=== PATIENT | male | born 2000 | race Caucasian/White ===

== ENCOUNTER 2018-09-17 17:04 | Emergency (ER) | payer OTHER ==
[~2018-09-17] VITALS: Ht 185.4 cm; Wt 83.2 kg
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
[2018-09-17] MEDS ORDERED: KETOROLAC 60 MG/2 ML VIAL (J1885) IM ONE (18:15)
[2018-09-17] MEDS ORDERED: IBUP-1114 PO (18:25)
[2018-09-17 18:35] VITALS: BP 138/79
[2018-09-17] MEDS ORDERED: KETOROLAC TROMETHAMINE 10 MG TAB PO ONE (19:15)
== END 2018-09-17 19:10 | disposition home or self-care (01) ==
LOC: M ED 17:04
DX: H92.01 Otalgia, right ear (principal); V48.6XXA Car passenger injured in noncollision transport accident in traffic accident, initial encounter; Y92.9 Unspecified place or not applicable; Y93.9 Activity, unspecified; Y99.9 Unspecified external cause status; Z72.0 Tobacco use

== ENCOUNTER → 2020-07-01 | Outpatient (CLI) | payer OTHER ==
[~2020-07-01] MED LIST: IBUP-1114 PO
== END ==
LOC: M LABSMTC 12:46
PROVIDERS: ATTEND Family Medicine
DX: Z20.822 Contact with and (suspected) exposure to COVID-19 (principal)
CPT/HCPCS: C9803; U0003

== ENCOUNTER 2021-03-08 13:33 | Emergency (ER) | payer OTHER ==
[~2021-03-08] VITALS: Ht 188 cm; Wt 92.7 kg
[2021-03-08 13:33] VITALS: BP 132/71
--- NOTE | 2021-03-08 14:25 | REP ---
INDICATION: pain COMPARISON: None TECHNIQUE: Five views FINDINGS: There is a proximal fibular head fracture. IMPRESSION: Proximal fibular head fracture. <Electronically signed by Gage Prieto > 03/08/21 [id number]
[2021-03-08] MEDS ORDERED: IBUPROFEN 800 MG TAB PO ONE (14:30)
[2021-03-08] MEDS ORDERED: ACETAMINOPHEN 500 MG TAB PO ONE (14:30)
--- NOTE | 2021-03-08 14:58 | REP ---
INDICATION: proximal fibular fracture, r/o maisonneuve racture. COMPARISON: None. TECHNIQUE: Four views FINDINGS: No acute fracture or destructive osseous lesion. The mortise is intact. IMPRESSION: No acute osseous abnormality. <Electronically signed by Gage Prieto > 03/08/21 [id number]
[2021-03-08] MEDS ORDERED: HYDR-3713 PO (16:11)
--- NOTE | 2021-03-08 17:29 | ER ---
ER CONSULTATION DATE: 03/08/2021 TIME: 2:30 p.m. SURGEON: Atul Kate M.D. CONSULTING SERVICE: Orthopedic surgery. 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 Patient was celebrating the holiday, which is Halloween, and sustained a twisting injury about his left knee while going down some stairs in his [employer]. Patient presented to the [facility] emergency department for further evaluation and treatment regarding his left knee pain. PAST MEDICAL HISTORY: Previous left knee medial collateral ligament (MCL) sprain or strain several years prior, which was treated nonoperatively. PAST SURGICAL HISTORY: Patient denies. SOCIAL HISTORY: He is a social drinker, nonsmoker, not a heavy drug user. ALLERGIES: Unknown. MEDICATIONS: Noncontributory REVIEW OF SYSTEMS: A 14 point review of systems was negative except what is described in the history of present illness (HPI) above. PHYSICAL EXAMINATION: GENERAL: Alert and oriented to person, time and place. LEFT KNEE: Tenderness to palpation about the fibular head. There was mild joint effusion. There were no breaks in the skin. Neurovascularly intact. LEFT LOWER EXTREMITY: There is 5/5 motor strength to the exterior hallucis longus (EHL), flexor hallucis longus (FHL), tibialis, anterior gastrocnemius and peroneal musculature. Sensation is intact to light touch to the deep and superficial peroneal, sural, saphenous and tibial nerve distributions. Brisk capillary refill to the digits with palpable dorsalis pedis and posterior pedal pulse. Patient was guarding significantly and would not tolerate a ligamentous exam. IMAGING DATA: Left knee radiographs demonstrates a minimally displaced fracture of the fibular head. There appears to be some widening of the lateral joint space indicative of a lateral collateral/posterolateral corner injury. Minimal knee effusion is appreciated in the lateral view. Left angle x-ray was negative for osseus abnormalities. IMPRESSION: A 20-year-old male with a left fibular head fracture, suspected posterolateral corner injury, ligamentous injury. PLAN: At this point in time, we will aspirate the patient's knee to improve his pain. He is having difficulty with ambulation, likely secondary to the hemarthrosis and he will be put in a knee immobilizer. He will follow up at [facility] for further evaluation and treatment regarding his suspected posterolateral corner injury. He will likely undergo physical therapy for 2-4 weeks prior to any additional advanced imaging including an MRI. Patient will be discharged with a knee immobilizer, pain medications per the emergency room (ER) physician or the physician supply assistant (P.A.).
== END 2021-03-08 17:05 | disposition home or self-care (01) ==
LOC: M ED 13:33
DX: S82.832A Other fracture of upper and lower end of left fibula, initial encounter for closed fracture (principal); S83.92XA Sprain of unspecified site of left knee, initial encounter; X50.0XXA Overexertion from strenuous movement or load, initial encounter; Y92.009 Unspecified place in unspecified non-institutional (private) residence as the place of occurrence of the external cause; Y93.9 Activity, unspecified; Y99.9 Unspecified external cause status; F17.200 Nicotine dependence, unspecified, uncomplicated

== ENCOUNTER 2021-07-20 09:45 | Day surgery (SDC) | payer OTHER ==
[~2021-07-20] VITALS: Ht 188 cm; Wt 88.0 kg
[~2021-07-20 09:45] MED LIST changes: +HYDR-3713 PO; +HYDROmorphone HCL 2MG/ML 1ML VIAL As Ordered ONE; +LIDOCAINE 1% MDV 20ML VIAL SQ PRN; +LIDOCAINE 2% 100MG/5ML SDV (FOR ANES.) As Ordered ONE; +LR 1,000 ML IV ONE; +MIDAZOLAM INJ 2MG/2ML VIAL (J2250 PER 1MG) As Ordered ONE; +ONDANSETRON 4MG/2ML VIAL As Ordered ONE; +ROCURONIUM BROMIDE 50 MG/5 ML VIAL As Ordered ONE; +dexameTHASONE 4 MG/ML 1ML VIAL (J1100 PER 1MG) As Ordered ONE; +fentaNYL 100 MCG/2 ML INJECTION As Ordered ONE; +fentaNYL 100 MCG/2 ML INJECTION IV PRN; +propofoL 200 MG/20 ML VIAL As Ordered ONE
[2021-07-20] MEDS ORDERED: EPINEPHrine INJ 1 MG/ML 1ML AMP As Ordered ONE (10:24)
[2021-07-20] MEDS ORDERED: dexameTHASONE 10MG/1ML VIAL PRES.FREE (J1100 PER 1MG) XX ONE (11:05)
[2021-07-20] MEDS ORDERED: ROPIvacaine 0.5% 30ML INJECTION (J2795 PER 1MG) XX ONE (11:05)
[2021-07-20] MEDS ORDERED: LIDOCAINE 1% MDV 20ML VIAL XX ONE (11:05)
[2021-07-20] MEDS: MIDAZOLAM INJ 2MG/2ML VIAL (J2250 PER 1MG) IV PRN ×2 (12:00→12:01)
[2021-07-20] MEDS ORDERED: ceFAZolin 2 GM/D5W 50 ML IV BAG (J0690 PER 500MG) As Ordered ONE (12:18)
[2021-07-20] MEDS ORDERED: TRANEXAMIC ACID 100 MG/ML 10ML VIAL As Ordered ONE (12:18)
[2021-07-20] MEDS ORDERED: ROCURONIUM BROMIDE 50 MG/5 ML VIAL As Ordered ONE (12:40)
[2021-07-20] MEDS ORDERED: LIDOCAINE 2% 100MG/5ML SDV (FOR ANES.) As Ordered ONE (12:40)
[2021-07-20] MEDS ORDERED: MIDAZOLAM INJ 2MG/2ML VIAL (J2250 PER 1MG) As Ordered ONE (12:40)
[2021-07-20] MEDS ORDERED: ACETAMINOPHEN 1000MG 100ML IV BTL (OFIRMEV) (J0131 PER 10MG) As Ordered ONE (12:40)
[2021-07-20] MEDS ORDERED: HYDROmorphone HCL 2MG/ML 1ML VIAL As Ordered ONE (12:40)
[2021-07-20] MEDS ORDERED: dexameTHASONE 4 MG/ML 1ML VIAL (J1100 PER 1MG) As Ordered ONE (12:40)
[2021-07-20] MEDS ORDERED: SUGAMMADEX SODIUM 500 MG/5 ML VIAL (BRIDION) As Ordered ONE (12:40)
[2021-07-20] MEDS ORDERED: ONDANSETRON 4MG/2ML VIAL As Ordered ONE (12:40)
[2021-07-20] MEDS ORDERED: fentaNYL 100 MCG/2 ML INJECTION As Ordered ONE (12:40)
[2021-07-20] MEDS ORDERED: propofoL 200 MG/20 ML VIAL As Ordered ONE (12:40)
[2021-07-20] MEDS ORDERED: GLYCOPYRROLATE INJ 0.2 MG/ML 2 ML VIAL As Ordered ONE (12:45)
[2021-07-20] MEDS ORDERED: fentaNYL 100 MCG/2 ML INJECTION IV PRN (16:00)
[2021-07-20] MEDS ORDERED: LR 1,000 ML IV SCH (16:00)
[2021-07-20] MEDS: HYDROMORPHONE HCL 0.5 MG/ 0.5 ML SYRINGE (J1170 PER 1) IV PRN ×2 (16:00→16:10)
[2021-07-20] MEDS ORDERED: oxyCODONE 5MG TAB PO PRN (16:00)
[2021-07-20] MEDS ORDERED: ONDANSETRON 4MG/2ML VIAL IV PRN (16:00)
[2021-07-20 17:30] VITALS: BP 149/70
== END 2021-07-20 17:51 | disposition home or self-care (01) ==
LOC: M SDC 09:45
PROVIDERS: ATTEND Orthopaedic Surgery
DX: M23.612 Other spontaneous disruption of anterior cruciate ligament of left knee (principal); F32.A Depression, unspecified; F43.10 Post-traumatic stress disorder, unspecified; F17.210 Nicotine dependence, cigarettes, uncomplicated
CPT/HCPCS: 29888; C1713; C1762; J0131; J0171; J0690; J1100; J1170; J2250; J2405; J3010